=== PATIENT | male | born 1990 | race Caucasian/White ===

== ENCOUNTER 2018-10-15 12:56 | Emergency (ER) | payer SELFPAY ==
[2018-10-15] MEDS: ONDANSETRON (ODT) 4 MG TAB ODT (14:04)
[2018-10-15] MEDS: HYDROCODONE/APAP (5/325) TAB PO (14:05)
== END 2018-10-15 14:10 | disposition home or self-care (01) ==
LOC: FTE 12:56
DX: M54.5 Low back pain (principal); M54.2 Cervicalgia
CPT/HCPCS: 99283